=== PATIENT | male | born 1950 | race Caucasian/White ===

== ENCOUNTER 2017-08-01 15:09 | Emergency (ER) | payer MEDICARE ==
[~2017-08-01] VITALS: Ht 177.8 cm; Wt 70.0 kg
[2017-08-01 15:20] VITALS: BP 115/61; PULSE 94; RESP 16; TEMP 98.1; O2SAT 99
[2017-08-01] MEDS ORDERED: CIPR500T2 PO (15:39)
[2017-08-01] MEDS ORDERED: OFLO0.3D9 EACH EAR (15:39)
[2017-08-01] MEDS ORDERED: IBUP1TAB7 PO (15:39)
--- NOTE | 2017-08-01 15:40 | PD ---
HPI Chief Complaint: ENT Complaint Time Seen by Provider: 15:26 Travel History International Travel<30 days: No Contact w/Intl Traveler<30days: No Traveled to known affect area: No History of Present Illness HPI 67-year-old male presents to the emergency department with complaint of bilateral ear pain, drainage from his ears, and swelling of his ears for the past couple weeks after he went swimming and snorkeling in the ocean. Says he has had symptoms like this in the past. He denies fever or vomiting. Denies recent illness to include nasal congestion, cough, sore throat. Reports decreased hearing. Says it sounds muffled. Has not taken any medication or try any treatment to alleviate his symptoms. Symptoms are mild to moderate in severity. No known aggravating or relieving factors. No primary care provider. No known allergies. Denies significant past medical history. Has no other medical complaints. No other modifying factors or associated signs and symptoms. PFSH Social History Tobacco Use: No Allergies-Medications (Allergen,Severity, Reaction): Coded Allergies: No Known Allergies (Unverified , 08/01/17) Reported Meds & Prescriptions Reported Meds & Active Scripts Active Ibuprofen 800 Mg Tab 800 Mg PO Q6HR PRN Ciprofloxacin (Ciprofloxacin HCl) 500 Mg Tab 500 Mg PO BID 10 Days Ofloxacin Otic Drops 0.3 % Drops 10 Drop EACH EAR DAILY 10 Days Review of Systems Except as stated in HPI: all other systems reviewed are Neg Physical Exam Narrative GENERAL: Well-nourished, well-developed male patient, in no acute distress; afebrile, nontoxic-appearing SKIN: Warm and dry. No rash. HEAD: Atraumatic. Normocephalic. EYES: Pupils equal and round. No scleral icterus. No injection or drainage. EARS: Bilateral pinnae and external canals appear within normal limits. Unable to visualize bilateral tympanic membranes secondary to bilateral ear drainage and swelling of the ear canal; with erythema. Reproducible pain with pulling on bilateral pinnae appear. bilateral tragus are edematous and without erythema. No post auricular or periauricular lymphadenopathy. ENT: Mucosa pink and moist. Oral Pharynx without erythema; without edema or exudates. No uvular edema. No uvular, palatal, or tonsillar deviation. Airway patent. NECK: Trachea midline. No lymphadenopathy. CARDIOVASCULAR: Regular rate and rhythm. No murmur appreciated. RESPIRATORY: No accessory muscle use. Clear to auscultation. Breath sounds equal bilaterally. GASTROINTESTINAL: Flat. MUSCULOSKELETAL: No obvious deformities. No clubbing. No cyanosis. No edema. NEUROLOGICAL: Awake and alert. Oriented 3. No obvious cranial nerve deficits. Motor grossly within normal limits. Normal speech. Moves all extremities. 5/5 strength to all extremities. PSYCHIATRIC: Appropriate mood and affect; insight and judgment normal. Data Data Last Documented VS Vital Signs Date Time Temp Pulse Resp B/P (MAP) Pulse Ox O2 Delivery O2 Flow Rate FiO2 08/01/17 15:20 98.1 94 16 115/61 (79) 99 Orders Orders Ed Discharge Order (08/01/17 15:41) MDM Medical Decision Making Medical Screen Exam Complete: Yes Emergency Medical Condition: Yes Medical Record Reviewed: Yes Differential Diagnosis Otitis media, otitis externa, cerumen impaction, foreign body, eardrum perforation Narrative Course 67-year-old male physical exam consistent with bilateral otitis externa. See my procedure note for placement of bilateral ear bill. Instructed patient to remove earwax in 2-3 days. Ciprofloxacin, ofloxacin otic, ibuprofen prescribed for home. Instructed patient to follow-up with ear nose throat as needed. Instructed patient to follow up with primary care provider. Patient verbalizes understanding and agreement with treatment plan. Patient is medically cleared and stable for discharge. Discussed reasons to return to the emergency department. Patient agrees with treatment plan. The patients vital signs are stable and the patient is stable for outpatient follow-up and treatment. Patient discharged home, stable and in no acute distress. Procedures Procedure Narrative Bilateral ear canal with placement: Tweezers were used to place bilateral ear bill. Normal saline was used to expand the bill in place. Patient instructed to remove the earwax in 2-3 days. Patient tolerated well. Diagnosis Primary Impression: Bilateral otitis externa Qualified Codes: H60.93 - Unspecified otitis externa, bilateral Referrals: [facility] Primary Care Physician Patient Instructions: General Instructions, Otitis Externa (ED) Additional Instructions: Take antibiotics as prescribed and complete full course Use antibiotic eardrops as prescribed Remove the wick from both of your ears in 24-48 hour Ibuprofen or Tylenol as directed and as needed to reduce pain and fever Avoid getting water in the ears Do not put anything in the ears; including Q-tips Follow-up with primary care provider Follow-up with ear nose throat specialist as needed Return to the emergency department immediately with worsening of symptoms Med/Other Pt SpecificInfo: Prescription(s) given Scripts Ibuprofen (Ibuprofen) 800 Mg Tab 800 MG PO Q6HR Y for PAIN, #20 TAB 0 Refills Prov: Kaitlyn Roger 08/01/17 Ciprofloxacin (Ciprofloxacin) 500 Mg Tab 500 MG PO BID for Infection for 10 Days, #20 TAB 0 Refills Prov: Kaitlyn Roger 08/01/17 Ofloxacin Otic Drops (Ofloxacin Otic Drops) 0.3 % Drops 10 DROP EACH EAR DAILY for Infection for 10 Days, #1 BOTTLE 0 Refills Prov: Kaitlyn Roger 08/01/17 Disposition: 01 DISCHARGE HOME Condition: Stable Kaitlyn Roger Aug 01, 2017 15:40
== END 2017-08-01 16:10 | disposition home or self-care (01) ==
LOC: NEPK 15:09
DX: H60.93 Unspecified otitis externa, bilateral (principal)
CPT/HCPCS: 99283